=== PATIENT | female | born 1930 | race Caucasian/White ===

== ENCOUNTER 2018-07-27 20:25 | Inpatient (IN) | END 2018-08-08 23:05 | DRG 4 ==

== ENCOUNTER 2018-08-17 09:17 | Day surgery (SDC) | END 2018-08-17 19:05 | disposition other institution (70) ==

== ENCOUNTER 2018-09-12 19:46 | Inpatient (IN) | payer MEDICARE, OTHER ==
[2018-09-12] VITALS (19 sets, daily range): BP systolic 79–104; BP diastolic 36–57; PULSE 53–69; RESP 18–30; Ht 162.6 cm; Wt 80.3 kg
[~2018-09-12] VITALS: Ht 162.6 cm; Wt 80.3 kg
[~2018-09-12 19:46] MED LIST: ACET325S GTB; ALBU2.5V3 NEB; AMLO-147 GTB; BALS3OIN TP; CINA60TA GTB; DOXA4TAB3 GTB; EPINEPHrine 0.1 MG/ML SYG ONE; EPO10ESRD SC; HEPA500021 IJ; INSU100C3 SQ; LANS30CA GTB; MCN2C15 TOP; METO25TA4 PO; NA BICARBONATE 8.4% 50 ML SYG ONE; NPH,100V SQ; NYST1POW22 TOPICAL; SEVE800T7 PO; [UNRECOGNIZED DRUG - CODE] IV
[2018-09-12] MEDS ORDERED: GLUCOSE GEL 15 GRAM TUBE PO PRN ×2 (20:00)
[2018-09-12] MEDS ORDERED: GLUCAGON 1 MG INJ IM PRN (20:00)
[2018-09-12] MEDS ORDERED: GENTAMICIN 80 MG/NS (PMX) 50 ML IVPB SCH (20:00)
[2018-09-12] MEDS ORDERED: hydrALAzine 20 MG INJ IV PRN (20:00)
[2018-09-12] MEDS ORDERED: DEXTROSE 50% 50 ML SYRINGE IV PRN ×2 (20:00→23:30)
[2018-09-12] MEDS ORDERED: ACETAMINOPHEN 650MG/20.3ML CUP GTB PRN (20:00)
[2018-09-12] MEDS ORDERED: ALBUMIN HUMAN 25% 100 ML IV PRN (20:00)
[2018-09-12] MEDS ORDERED: GENTAMICIN IV PER PHARMACY XX SCH (20:00)
[2018-09-12] MEDS ORDERED: GLUCOSE GEL 15 GRAM TUBE BUCCAL PRN (20:00)
--- NOTE | 2018-09-12 20:21 | NUR ---
Pt arrived to ICU at 1943, Pt assessed and placed on monitor. Pt placed on 5mcg of Levo for BP support, placed on Vent; AC 16 TV500 50% Peep 0. SpO2 100%. Blood glucose 120. Temp of 96.2. Report received from Dionne Carmichael RN at bedside. Pt's 2 sweta Mclean and Moose at bedside, requested to talk to Dr Fitzpatrick regarding pt code status.
[2018-09-12] MEDS ORDERED: BALSAM PERU/CASTOR OIL 60 GM TUBE TOP PRN (21:30)
[2018-09-12] MEDS ORDERED: NPH, HUMAN INSULIN ISOPHANE 3ML VIAL SC SCH (22:00)
[2018-09-12] MEDS ORDERED: ONDANSETRON 4 MG INJ IV PRN (22:00)
[2018-09-12] MEDS ORDERED: NA PHOSPHATE/BIPHOS 133 ML ENEMA PR PRN (22:00)
[2018-09-12] MEDS ORDERED: MICONAZOLE 2% 30 GM CR TOP PRN (22:00)
[2018-09-12] MEDS: ACETYLCYSTEINE 20% 4 ML VIAL NEB SCH (22:27)
[2018-09-12] MEDS: NORepinephrine 8MG/250 ML (PMX 250 ML IV SCH (22:29)
[2018-09-12] MEDS: HEPARIN 5,000 UNIT/1 ML VIAL SC SCH (22:59)
[2018-09-12] MEDS ORDERED: VANCOMYCIN IV PER PHARMACY XX SCH (23:15)
[2018-09-12] MEDS ORDERED: INSULIN HUMAN REGULAR 100 UNIT in SOD CHLORIDE 0.9% 99 ML IV SCH (23:30)
[2018-09-12] MEDS: ACCU-CHEK XX SCH (23:30)
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
[2018-09-13] VITALS (65 sets, daily range): BP systolic 0–122; BP diastolic 27–70; PULSE 0–62; RESP 16–27
[2018-09-13] MEDS: DEXTROSE 50% 50 ML SYRINGE IV PRN ×2 (00:01→02:18)
[2018-09-13] MEDS: ACCU-CHEK XX SCH ×16 (00:43→14:22)
[2018-09-13] MEDS: BALSAM PERU/CASTOR OIL 60 GM TUBE TOP SCH ×4 (00:52→11:39)
[2018-09-13] MEDS: ALBUTEROL/IPRATROPIUM (NEB) 3 ML AMP HHN SCH ×2 (01:56→08:25)
[2018-09-13] MEDS ORDERED: SODIUM CHLORIDE 23.4% 77 MEQ in DEXTROSE 10% 1,000 ML IV SCH (03:00)
[2018-09-13] MEDS: NORepinephrine 8MG/250 ML (PMX 250 ML IV SCH ×2 (05:34→11:37)
[2018-09-13] MEDS ORDERED: LANSOPRAZOLE 30 MG CAP GTB SCH (06:00)
[2018-09-13] MEDS ORDERED: VANCOMYCIN 1 GM 250 ML IVPB SCH (06:30)
[2018-09-13] MEDS ORDERED: INSULIN ASPART [NOVOLOG] 3 ML PEN SC SCH (07:35)
[2018-09-13] MEDS: ACETYLCYSTEINE 20% 4 ML VIAL NEB SCH (08:25)
--- NOTE | 2018-09-13 08:26 | PN ---
Date/Time of Note Date/Time of Note DATE: 09/13/18 TIME: 08:23 Assessment/Plan VTE Prophylaxis SCD applied (from Ns): Yes Pharmacological prophylaxis: heparin Assessment/Plan Problems: (1) Septic shock Status: Acute Comment: Patient is extremely septic. Pulmonary infectious disease and renal were notified at the time of her transfer last night. Patient is on broad- spectrum antibiotics and pressor support. Continue to work with this as well as putting her on a bicarb drip to try and correct the acidosis. Situation is critical. Please note that the family has been discussed at length with this. They do not wish her to have chest compressions or DC countershock. She is already on a ventilator they do wish for her to be treated with medications to support her blood pressure. (2) Coag negative Staphylococcus bacteremia Status: Acute Comment: On broad-spectrum antibiotics. Infectious disease is notified (3) Diastolic dysfunction with chronic heart failure Status: Chronic Comment: Noted. (4) Renal failure Status: Chronic Comment: Nephrology is notified. Qualifiers: Renal failure chronicity: chronic Chronic kidney disease stage: on chronic dialysis Qualified Codes: N18.6 - End stage renal disease; Z99.2 - Dependence on renal dialysis (5) Diabetes mellitus Status: Chronic Comment: Insulin drip for the time being Qualifiers: Diabetes mellitus type: type 2 Diabetes mellitus usp insulin use: with usp use Diabetes mellitus complication status: with kidney complications Diabetes mellitus complication detail: with chronic kidney disease Chronic kidney disease stage: on chronic dialysis Qualified Codes: E11.22 - Type 2 diabetes mellitus with diabetic chronic kidney disease; N18.6 - End stage renal disease; Z79.4 - moth exterminator (current) use of insulin; Z99.2 - Dependence on renal dialysis (6) Respiratory failure Status: Chronic Comment: Pulmonary will assist. Qualifiers: Chronicity: chronic Respiratory failure complication: hypoxia and hypercapnia Qualified Codes: J96.11 - Chronic respiratory failure with hypoxia; J96.12 - Chronic respiratory failure with hypercapnia Result Diagram: 09/13/18 0458 Results 24hrs Laboratory Tests Test 09/12/18 20:02 09/12/18 23:00 09/12/18 23:43 09/13/18 00:37 Bedside Glucose 120 57 L 113 Blood Gas Blood arterial Specimen Source Arterial Blood 09/12/2018 11:1 Date Drawn 0:43 PM Arterial Blood 7.150 *L pH (Temp corrected ) Arterial Blood 17.1 L pCO2 (Temp correct) Arterial Blood 131.3 H pO2 (Temp corrected ) Arterial Blood 5.8 *L HCO3 Arterial Blood -21.1 L Base Excess Arterial Blood 97.9 Oxygen Saturati on Sammy Test ACCEPTAB Arterial Blood Left Radial Gas Puncture Site Arterial 0.7 Blood Carboxyhe moglobin Arterial Blood 0.4 Methemoglobin Blood Gas A-a 62.5 H O2 Differential Oxyhemoglobin 96.8 Percent Blood Gas 37.0 Temperature Blood Gas 16.0 Respiration Rate Blood Gas 28 Actual Respiration Rat e Blood Gas VENT - AC Modality FiO2 30.0 Blood Gas Tidal 600.0 Volume Blood Gas Low 0 PEEP Setting Blood Gas JBOWLES RN Critical Value Read Back Blood Gas MA Notified Whom Blood Gas 09/12/2018 11:2 Notified Time 1:45 PM Test 09/13/18 01:57 09/13/18 03:03 09/13/18 03:31 09/13/18 04:37 Bedside Glucose 58 L 101 100 95 Test 09/13/18 04:58 09/13/18 05:36 09/13/18 07:30 09/13/18 08:00 White Blood 22.1 H Count Red Blood Count 2.69 L Hemoglobin 7.1 L Hematocrit 27.9 L Mean 103.7 H Corpuscular Volume Mean 26.4 L Corpuscular Hemoglobin Mean 25.4 L Corpuscular Hemoglobin Conc ent Red Cell 18.6 H Distribution Width Platelet Count 372 Mean Platelet 10.8 H Volume Immature 4.800 H Granulocytes % Neutrophils % 77.8 H Lymphocytes % 8.8 L Monocytes % 8.3 Eosinophils % 0.0 Basophils % 0.3 Nucleated Red 2.4 H Blood Cells % Immature 1.050 H Granulocytes # Neutrophils # 17.2 H Lymphocytes # 2.0 Monocytes # 1.8 H Eosinophils # 0.0 Basophils # 0.1 Nucleated Red 0.5 H Blood Cells # Lactic Acid 16.9 *H Level Random 13.3 Vancomycin Level Bedside Glucose 80 123 Blood Gas Blood Specimen arterial Source Arterial Blood 09/13/2018 8:0 Date Drawn 9:07 AM Arterial Blood 6.930 *L pH (Temp corrected ) Arterial Blood 24.6 L pCO2 (Temp correct) Arterial Blood 103.8 H pO2 (Temp corrected ) Arterial Blood 5.0 *L HCO3 Arterial Blood -26.4 L Base Excess Sammy Test ACCEPTAB Arterial Blood Right Radial Gas Puncture Site Blood Gas A-a 81.2 H O2 Differential Blood Gas 37.0 Temperature Blood Gas 16.0 Respiration Rate Blood Gas 19 Actual Respiration Rat e Blood Gas VENT - AC Modality FiO2 30.0 Blood Gas Tidal 600.0 Volume Blood Gas BEVERLEY REED Critical Value Read Back Blood Gas TM Notified Whom Blood Gas 09/13/2018 8:1 Notified Time 6:56 AM Subjective 24 Hr Interval Summary Subjective hx not possible: pt non-verbal, pt critical status Exam/Review of Systems Vital Signs Vitals Vital Signs Date Temp Pulse Resp B/P (MAP) Pulse Ox O2 O2 Flow FiO2 Time Delivery Rate 09/13/18 59 18 100 30 05:47 09/13/18 87/34 (51) Mechanical 03:00 Ventilator Trach Collar 09/13/18 97.7 00:00 Exam Constitutional: non-verbal ENMT: other (Tracheostomy) Respiratory: normal air movement, crackles/rales Cardiovascular: regular rate and rhythm, nl pulses Gastrointestinal: other (EEG tube in place) Extremities: normal pulses Medications Medications Current Medications Norepinephrine 250 ml @ 1.875 mls/ hr TITRATE IV Last administered on 09/13/18at 05:34; Admin Dose 45 MLS/HR; Start 09/12/18 at 22:00 Diagnostic Test (Pha) (Accu-Chek) 1 ea AC MEALS XX Last administered on 09/13/18at 07:32; Admin Dose 1 EA; Start 09/13/18 at 07:05 Acetaminophen (Tylenol Liquid) 650 mg Q4H PRN GTB MILD PAIN(1-3)OR ELEVATED TEMP; Start 09/12/18 at 20:00 Acetylcysteine (Mucomyst) 4 ml Q12H RESP THERAPY NEB Last administered on 09/12/18at 22:27; Admin Dose 4 ML; Start 09/12/18 at 22:00 Albumin Human 100 ml @ 100 mls/hr DURING DIALYSIS PRN IV support bp; Start 09/12/18 at 20:00 Albuterol/ Ipratropium (Duoneb) 3 ml Q6H RESP THERAPY HHN Last administered on 09/13/18at 01:56; Admin Dose 3 ML; Start 09/13/18 at 02:00 Cinacalcet (Sensipar) 60 mg DAILY PO ; Start 09/13/18 at 09:00 Dextrose (D50w Syringe) 50 ml PRN PRN IV DECREASED GLUCOSE; Start 09/12/18 at 20:00 Epoetin Khanh (Epogen (Esrd)) 10,000 units MoWeFr@17 SC ; Start 09/13/18 at 17:00 Gentamicin Sulfate (Gentamicin Iv Per Pharmacy) GENTAMICIN PER PHARMACY NOTE XX ; Start 09/12/18 at 20:00 Gentamicin Sulfate 50 ml @ 104 mls/hr AFTER DIALYSIS IVPB ; Start 09/12/18 at 20:00 Glucagon (Glucagen) 1 mg PRN PRN IM DECREASED GLUCOSE; Start 09/12/18 at 20:00 Glucose (Glutose) 15 gm PRN PRN PO glucose 51-69; Start 09/12/18 at 20:00 Glucose (Glutose) 22.5 gm PRN PRN PO glucose below 51; Start 09/12/18 at 20:00 Glucose (Glutose) 15 gm PRN PRN BUCCAL glucose below 70; Start 09/12/18 at 20:00 Heparin Sodium (Porcine) (Heparin (5000 Units/1ml)) 5,000 unit BID SC Last administered on 09/12/18at 22:59; Admin Dose 5,000 UNIT; Start 09/12/18 at 22:00 Hydralazine HCl (Apresoline) 20 mg Q6H PRN IV HYPERTENSION; Start 09/12/18 at 20:00 Lansoprazole (Prevacid) 30 mg DAILY@06 GTB Last administered on 09/13/18at 06:52; Admin Dose 30 MG; Start 09/13/18 at 06:00 Miconazole Nitrate (Miconazole 2% Cr) 1 applic PRN PRN TOP rash; Start 09/12 at 22:00 Miconazole Nitrate (Miconazole 2% Cr) 1 applic BID TOP ; Start 09/13/18 at 09:00 Nystatin (Nystatin Powder) 1 applic BID TOP ; Start 09/13/18 at 09:00 Ondansetron HCl (Zofran Inj) 4 mg Q6H PRN IV NAUSEA AND/OR VOMITING; Start 09/12/18 at 22:00 IV Flush (NS 10 ml) 10 ml Q8 PRN IV protocol; Start 09/12/18 at 22:00 Sevelamer Carbonate (Renvela) 0.8 gm TID GTB ; Start 09/13/18 at 09:00 Simethicone (Mylicon) 80 mg Q8 PRN GTB DISTENSION/GAS/BLOATING; Start 09/12/18 at 22:00 Sodium Biphosphate/ Sodium Phosphate (Fleet Enema) 133 ml DAILY PRN [place] CONSTIPATION; Start 09/12/18 at 22:00 Vancomycin HCl (Vanco Iv Per Pharmacy) VANCOMYCIN PER PHARMACY PER PROTOCOL XX ; Start 09/12/18 at 23:15 Voriconazole (Vfend) 200 mg BID PO ; Start 09/13/18 at 09:00 Diagnostic Test (Pha) (Accu-Chek) 1 ea Q1H XX Last administered on 09/13/18at 07:32; Admin Dose 1 EA; Start 09/12/18 at 23:30 Insulin Human Regular 100 unit/ Sodium Chloride 100 ml @ 0 mls/hr PER PROTOCOL IV ; Start 09/12/18 at 23:30; Status UNV Miscellaneous Information (* Miscellaneous Pharmacy Order) Treatment of Hypo glycemia: 1.BG 51... Per protocol XX ; Start 09/12/18 at 23:30 Dextrose (D50w Syringe) 25 ml Q15M PRN IV DECREASED GLUCOSE Last administered on 09/13/18at 02:18; Admin Dose 25 ML; Start 09/12/18 at 23:30 Dextrose (D50w Syringe) 50 ml Q15M PRN IV DECREASED GLUCOSE; Start 09/12/18 at 23:30 Sodium Chloride 77 meq/Dextrose 1,019.25 ml @ 40 mls/hr Q24H IV Last administered on 09/13/18at 03:04; Admin Dose 40 MLS/HR; Start 09/13/18 at 03:00 Vancomycin HCl 250 ml @ 125 mls/hr Q96H IVPB Last administered on 09/13/18at 07:32; Admin Dose 125 MLS/HR; Start 09/13/18 at 06:30 Cefepime HCl 50 ml @ 100 mls/hr Q8 IVPB ; Start 09/13/18 at 14:00; Status UNV Aztreonam 2 gm/ Sodium Chloride 100 ml @ 100 mls/hr Q8 IVPB ; Start 09/13/18 at 14:00; Status UNV SARAH VALENTIN MD Sep 13, 2018 08:26
[2018-09-13] MEDS ORDERED: LIDOCAINE 1% (MPF) 5 ML VIAL SC ONE ×2 (08:30→10:00)
[2018-09-13] MEDS: SEVELAMER CARBONATE 0.8 GM PKT GTB SCH ×2 (08:36→14:11)
[2018-09-13] MEDS: HEPARIN 5,000 UNIT/1 ML VIAL SC SCH (08:38)
[2018-09-13] MEDS ORDERED: CINACALCET 30 MG TAB PO SCH (09:00)
[2018-09-13] MEDS ORDERED: METOPROLOL 25 MG TAB GTB SCH (09:00)
[2018-09-13] MEDS ORDERED: NYSTATIN 30 GM POWDER BTL TOP SCH (09:00)
[2018-09-13] MEDS ORDERED: MICONAZOLE 2% 30 GM CR TOP SCH (09:00)
[2018-09-13] MEDS ORDERED: VORICONAZOLE 200 MG TAB PO SCH (09:00)
[2018-09-13] MEDS ORDERED: SODIUM BICARBONATE (IV ADD) 100 MEQ in DEXTROSE 5% 900 ML IV SCH (09:00)
--- NOTE | 2018-09-13 09:05 | NUR ---
EOSS Pt remained obtunded throughout shift, would withdraw to pain but does not follow commands. Pt remains on vent through trach, SpO2 remained >92% throughout shift. Pt remained in 2nd degree type 1 heart block with low BP, Levo titrated accordingly throughout shift. Pt cisneros in place, minimal output with <20ml throughout shift. Pt PEG tube patent, but would occasionally become occluded requiring flushing. Shortly after pt TF were started emesis was discovered in pt's mouth, upon reassessment pt had high residuals from peg tube (600ml) TF was held and MD notified. Pt's trach site remained intact and pt did not appear to aspirate TF. Pt placed on D10 0.45% NS as pt continued to be hypoglycemic throughout shift. Pt's 2 sons at bedside upon arrival to unit and were at bedside intermittently throughout night. Per Dr Fitzpatrick code status was changed to Chem code only. After discussion with family they wished it to be clear that they wanted everything done except for chest compressions including being reintubated if needed. Pt turned q2h. Bedside report given to dayshift RN.
[2018-09-13] MEDS ORDERED: NA BICARBONATE 8.4% 50 ML SYG ONE ×2 (09:34→10:02)
[2018-09-13] MEDS ORDERED: NA BICARBONATE 8.4% 50 ML SYG IV ONE ×2 (10:00→13:00)
--- NOTE | 2018-09-13 10:02 | PN ---
DATE: 09/13/2018 SUBJECTIVE: The patient yesterday was transferred from [facility] to [facility] intensive care unit due to septic shock. The patient was placed on pressor support. The patient had a lactic acid of approximately 17. Overnight, the patient has been critically ill on pressor lewis pport, on IV hydration, on full ventilatory support. No other acute events noted. No hemoptysis, he matemesis, hematochezia. OBJECTIVE: VITAL SIGNS: Blood pressure is 87/34, respiration 24, pulse 55, temperature 98.6. HEENT: Head is normocephalic. NECK: Supple. HEART: Regular rate. LUNGS: Show diminished breath sounds at the base. ABDOMEN: Soft, nontender to palpation without rebound or guarding. EXTREMITIES: Negative for clubbing, cyanosis. Positive edema. DERMATOLOGIC: No rashes. MUSCULOSKELETAL: No joint effusions. NEUROLOGIC: Patient is obtunded. LABORATORY DATA: Shows a lactic acid is 17 and BNP is pending. The patient has a white count of 22. 1, hemoglobin 7.1, platelet count is 372. ASSESSMENT AND PLAN: 1. End-stage renal disease. The patient has been receiving intermittent hemodialysis, last hemodial ysis was yesterday. The patient has a persistent bacteremia and may require removal of Alireza coco ter. At this point, will follow up cultures. Discussed with infectious disease about catheter remov al. Continue intermittent hemodialysis if the patient is hemodynamically stable. 2. Metabolic acidemia. Etiology secondary to lactic acidosis. End-stage renal disease. Will follow up ABG. Will continue dialysis on a high bicarbonate bath. If the patient is unable to tolerate he modialysis, will start patient on bicarbonate drip, monitor closely. 3. Anemia. Monitor hemoglobin and hematocrit levels, transfuse PRBCs as needed. We will continue E pogen. 4. Mineral bone disorder, monitor calcium and phosphorus levels. 5. Septic shock, etiology secondary to bacteremia. Underlying source is unclear. Continue broad sp ectrum antibiotics, continue pressor support. Continue volume expansion. We will follow up with inf ectious disease. 6. Ventilator dependent respiratory failure. Vent settings and ABG was reviewed. Continue to monit or. Follow up with pulmonary. 7. Dysphagia. Continue tube feeding. 8. Diabetes. Continue current insulin regimen. 9. Arrhythmia. Continue medical management. Follow up with cardiology. Please note I spent over 30 minutes of critical care time with this patient. Dictated By: KIRIT MERCADO DO NR/RAYMOND Conf#: [id number] DID#: [id number] CC: SARAH VALENTIN MD; JESSICA MOSS MD;*EndCC*
[2018-09-13] MEDS ORDERED: SODIUM BICARBONATE (IV ADD) 150 MEQ in DEXTROSE 5% 850 ML IV SCH (10:09)
[2018-09-13] MEDS ORDERED: CEFEPIME 1GM/50 ML IVPB SCH (11:00)
--- NOTE | 2018-09-13 11:30 | NUR ---
SS NOTE: CONSULT PT TRANSFERRED FROM [facility] DUE TO HYPOTENSION, SEPTIC SHOCK. SW MET WITH PT'S SON AT BEDSIDE. SON REPORTED THAT THEY HAVE DISCUSSED PT'S CONDITION WITH DR. VALENTIN AND THEY HAVE MADE A DECISION THAT PT SHOULD BE CHEM CODE ONLY. SON STATED THAT THEY STILL WANT TO CONTINUE WITH FULL TREATMENT AT THIS TIME AND THEY WILL CONTINUE TO FOLLOW DR. VALENTIN'S RECOMMENDATION RE: PT'S TREATMENT PLANS. SW PROVIDED EMOTIONAL SUPPORT. WILL CONTINUE TO F/U WITH PT'S FAMILY FOR INFO AND SUPPORT.
--- NOTE | 2018-09-13 11:36 | CONS ---
Date/Time of Note Date/Time of Note DATE: 09/13/18 TIME: 11:29 Assessment/Plan Assessment/Plan Assessment/Plan Severe septic shock Hypotension on IV pressor Lactic acidosis Respiratory failure Preserved ejection fraction Chronic kidney disease on hemodialysis Encephalopathy History of coronary artery disease -continue IV pressor to maintain SBP>90 and or MAP >60 -Awaiting PICC like (I have called radiology) -D/C all aanti-HTN meds -Fluid management and electrolytes as per Renal -Antibiotics as per ID -Critical/grave prognosis discussed with sons. Patient is currently a chemical code -Greater than 40 minutes of critical care time taken in the care of this patient Result Diagram: 09/13/18 0458 09/13/18 0835 Results 24hrs Laboratory Tests Test 09/12/18 20:02 09/12/18 23:00 09/12/18 23:43 09/13/18 00:37 Bedside Glucose 120 57 L 113 Blood Gas Blood arterial Specimen Source Arterial Blood 09/12/2018 11:1 Date Drawn 0:43 PM Arterial Blood 7.150 *L pH (Temp corrected ) Arterial Blood 17.1 L pCO2 (Temp correct) Arterial Blood 131.3 H pO2 (Temp corrected ) Arterial Blood 5.8 *L HCO3 Arterial Blood -21.1 L Base Excess Arterial Blood 97.9 Oxygen Saturati on Sammy Test ACCEPTAB Arterial Blood Left Radial Gas Puncture Site Arterial 0.7 Blood Carboxyhe moglobin Arterial Blood 0.4 Methemoglobin Blood Gas A-a 62.5 H O2 Differential Oxyhemoglobin 96.8 Percent Blood Gas 37.0 Temperature Blood Gas 16.0 Respiration Rate Blood Gas 28 Actual Respiration Rat e Blood Gas VENT - AC Modality FiO2 30.0 Blood Gas Tidal 600.0 Volume Blood Gas Low 0 PEEP Setting Blood Gas JBOWMIA RN Critical Value Read Back Blood Gas MA Notified Whom Blood Gas 09/12/2018 11:2 Notified Time 1:45 PM Test 09/13/18 01:57 09/13/18 03:03 09/13/18 03:31 09/13/18 04:37 Bedside Glucose 58 L 101 100 95 Test 09/13/18 04:58 09/13/18 05:36 09/13/18 07:30 09/13/18 08:00 White Blood 22.1 H Count Red Blood Count 2.69 L Hemoglobin 7.1 L Hematocrit 27.9 L Mean 103.7 H Corpuscular Volume Mean 26.4 L Corpuscular Hemoglobin Mean 25.4 L Corpuscular Hemoglobin Conc ent Red Cell 18.6 H Distribution Width Platelet Count 372 Mean Platelet 10.8 H Volume Immature 4.800 H Granulocytes % Neutrophils % 77.8 H Lymphocytes % 8.8 L Monocytes % 8.3 Eosinophils % 0.0 Basophils % 0.3 Nucleated Red 2.4 H Blood Cells % Immature 1.050 H Granulocytes # Neutrophils # 17.2 H Lymphocytes # 2.0 Monocytes # 1.8 H Eosinophils # 0.0 Basophils # 0.1 Nucleated Red 0.5 H Blood Cells # Lactic Acid 16.9 *H Level Random 13.3 Vancomycin Level Bedside Glucose 80 123 Blood Gas Blood Specimen arterial Source Arterial Blood 09/13/2018 8:0 Date Drawn 9:07 AM Arterial Blood 6.930 *L pH (Temp corrected ) Arterial Blood 24.6 L pCO2 (Temp correct) Arterial Blood 103.8 H pO2 (Temp corrected ) Arterial Blood 5.0 *L HCO3 Arterial Blood -26.4 L Base Excess Sammy Test ACCEPTAB Arterial Blood Right Radial Gas Puncture Site Blood Gas A-a 81.2 H O2 Differential Blood Gas 37.0 Temperature Blood Gas 16.0 Respiration Rate Blood Gas 19 Actual Respiration Rat e Blood Gas VENT - AC Modality FiO2 30.0 Blood Gas Tidal 600.0 Volume Blood Gas BEVERLEY REED Critical Value Read Back Blood Gas TM Notified Whom Blood Gas 09/13/2018 8:1 Notified Time 6:56 AM Test 09/13/18 08:35 09/13/18 09:04 Sodium Level 139 Potassium Level 6.1 *H Chloride Level 101 Carbon Dioxide 7 #*L Level Anion Gap 31 #H Blood Urea 84 H Nitrogen Creatinine 5.62 H Est Glomerular Filtrat Rate mL/min Glucose Level 112 # Calcium Level 8.6 Phosphorus 17.8 H Level Magnesium Level 3.2 H Total Bilirubin 0.0 L Direct 0.00 Bilirubin Indirect 0.0 Bilirubin Aspartate Amino 542 H Transf (AST/SGO T) Alanine 102 H Aminotransferas e (ALT/SGPT) Alkaline 195 H Phosphatase Total Protein 6.6 Albumin 3.2 L Globulin 3.40 H Albumin/Globuli 0.94 n Ratio Bedside Glucose 138 Consultation Date/Type/Reason Admit Date/Time Sep 12, 2018 at 19:46 Initial Consult Date Type of Consult cv 24 HR Interval Summary Free Text/Dictation Patient transferred to ICU secondary to worsening hypotension and metabolic acidosis. Currently poor mental status response. On IV pressor. Exam/Review of Systems Vital Signs Vitals Vital Signs Date Temp Pulse Resp B/P (MAP) Pulse Ox O2 O2 Flow FiO2 Time Delivery Rate 09/13/18 57 16 91/70 (77) 99 10:15 09/13/18 98.0 08:00 09/13/18 Mechanical 07:30 Ventilator 09/13/18 30 05:47 Intake and Output 09/12/18 09/12/18 09/13/18 1515:00 23:00 07:00 IntakeIntake Total 28.125 ml 315.625 ml OutputOutput Total 50 ml 0 ml BalanceBalance -21.875 ml 315.625 ml Exam No response to verbal stimuli or tactile stimuli, tracheostomy to ventilator, multiple family members at bedside, no apparent distress Head: normocephalic Neck: other (Tracheostomy) Respiratory: other (Coarse breath sounds bilaterally, no wheezing) Cardiovascular: regular rate and rhythm, other (S1-S2 heard) Gastrointestinal: soft, bowel sounds, other (No grimacing with palpation) Extremities: edema (Mild) Neurological: other (No response to verbal or tactile stimuli) Additional Comments Rectal tube present Medications Medications Current Medications Norepinephrine 250 ml @ 1.875 mls/ hr TITRATE IV Last administered on 09/13/18at 05:34; Admin Dose 45 MLS/HR; Start 09/12/18 at 22:00 Diagnostic Test (Pha) (Accu-Chek) 1 ea AC MEALS XX Last administered on 09/13/18at 07:32; Admin Dose 1 EA; Start 09/13/18 at 07:05 Acetaminophen (Tylenol Liquid) 650 mg Q4H PRN GTB MILD PAIN(1-3)OR ELEVATED TEMP; Start 09/12/18 at 20:00 Acetylcysteine (Mucomyst) 4 ml Q12H RESP THERAPY NEB Last administered on 09/13/18at 08:25; Admin Dose 4 ML; Start 09/12/18 at 22:00 Albumin Human 100 ml @ 100 mls/hr DURING DIALYSIS PRN IV support bp; Start 09/12/18 at 20:00 Albuterol/ Ipratropium (Duoneb) 3 ml Q6H RESP THERAPY HHN Last administered on 09/13/18at 08:25; Admin Dose 3 ML; Start 09/13/18 at 02:00 Cinacalcet (Sensipar) 60 mg DAILY PO Last administered on 09/13/18at 08:37; Admin Dose 60 MG; Start 09/13/18 at 09:00 Dextrose (D50w Syringe) 50 ml PRN PRN IV DECREASED GLUCOSE; Start 09/12/18 at 20:00 Epoetin Khanh (Epogen (Esrd)) 10,000 units MoWeFr@17 SC ; Start 09/13/18 at 17:00 Gentamicin Sulfate (Gentamicin Iv Per Pharmacy) GENTAMICIN PER PHARMACY NOTE XX ; Start 09/12/18 at 20:00 Gentamicin Sulfate 50 ml @ 104 mls/hr AFTER DIALYSIS IVPB ; Start 09/12/18 at 20:00 Glucagon (Glucagen) 1 mg PRN PRN IM DECREASED GLUCOSE; Start 09/12/18 at 20:00 Glucose (Glutose) 15 gm PRN PRN PO glucose 51-69; Start 09/12/18 at 20:00 Glucose (Glutose) 22.5 gm PRN PRN PO glucose below 51; Start 09/12/18 at 20:00 Glucose (Glutose) 15 gm PRN PRN BUCCAL glucose below 70; Start 09/12/18 at 20:00 Heparin Sodium (Porcine) (Heparin (5000 Units/1ml)) 5,000 unit BID SC Last administered on 09/13/18at 08:38; Admin Dose 5,000 UNIT; Start 09/12/18 at 22:00 Hydralazine HCl (Apresoline) 20 mg Q6H PRN IV HYPERTENSION; Start 09/12/18 at 20:00 Lansoprazole (Prevacid) 30 mg DAILY@06 GTB Last administered on 09/13/18at 06:52; Admin Dose 30 MG; Start 09/13/18 at 06:00 Miconazole Nitrate (Miconazole 2% Cr) 1 applic PRN PRN TOP rash; Start 09/12/18 at 22:00 Miconazole Nitrate (Miconazole 2% Cr) 1 applic BID TOP Last administered on 09/13/18at 08:39; Admin Dose 1 APPLIC; Start 09/13/18 at 09:00 Nystatin (Nystatin Powder) 1 applic BID TOP Last administered on 09/13/18at 08:39; Admin Dose 1 APPLIC; Start 09/13/18 at 09:00 Ondansetron HCl (Zofran Inj) 4 mg Q6H PRN IV NAUSEA AND/OR VOMITING; Start 09/12/18 at 22:00 IV Flush (NS 10 ml) 10 ml Q8 PRN IV protocol; Start 09/12/18 at 22:00 Sevelamer Carbonate (Renvela) 0.8 gm TID GTB Last administered on 09/13/18at 08:36; Admin Dose 0.8 GM; Start 09/13/18 at 09:00 Simethicone (Mylicon) 80 mg Q8 PRN GTB DISTENSION/GAS/BLOATING; Start 09/12/18 at 22:00 Sodium Biphosphate/ Sodium Phosphate (Fleet Enema) 133 ml DAILY PRN MI CONSTIPATION; Start 09/12/18 at 22:00 Vancomycin HCl (Vanco Iv Per Pharmacy) VANCOMYCIN PER PHARMACY PER PROTOCOL XX ; Start 09/12/18 at 23:15 Voriconazole (Vfend) 200 mg BID PO Last administered on 09/13/18at 08:36; Admin Dose 200 MG; Start 09/13/18 at 09:00 Diagnostic Test (Pha) (Accu-Chek) 1 ea Q1H XX Last administered on 09/13/18at 07:32; Admin Dose 1 EA; Start 09/12/18 at 23:30 Insulin Human Regular 100 unit/ Sodium Chloride 100 ml @ 0 mls/hr PER PROTOCOL IV ; Start 09/12/18 at 23:30; Status Hold Miscellaneous Information (* Miscellaneous Pharmacy Order) Treatment of Hypogl ycemia: 1.BG 51... Per protocol XX ; Start 09/12/18 at 23:30 Dextrose (D50w Syringe) 25 ml Q15M PRN IV DECREASED GLUCOSE Last administered on 09/13/18at 02:18; Admin Dose 25 ML; Start 09/12/18 at 23:30 Dextrose (D50w Syringe) 50 ml Q15M PRN IV DECREASED GLUCOSE; Start 09/12/18 at 23:30 Vancomycin HCl 250 ml @ 125 mls/hr Q96H IVPB Last administered on 09/13/18at 07:32; Admin Dose 125 MLS/HR; Start 09/13/18 at 06:30 Sodium Bicarbonate 150 meq/Dextrose 1,000 ml @ 50 mls/hr Q20H IV ; Start 09/13/18 at 10:09 Cefepime HCl 50 ml @ 100 mls/hr DAILY IVPB ; Start 09/13/18 at 11:00 Mg Hoskins DO Sep 13, 2018 11:36
--- NOTE | 2018-09-13 12:04 | NUR ---
RX NOTE RE: VANCOMYCIN AND GENTAMICIN PT ON VANCO AND GENT PER RX BUN/SCR: 84/5.62 TMAX: 98 ALLERGIES: NKDA OTHER ABX: CEFEPIME, VORICONAZOLE VANCO RANDOM: 13.3 VANCOMYCIN 1GM X1 GIVEN TODAY IN THE AM. WILL ADJUST TO DOSE PER LEVEL. DIALYSIS PLANNED FOR TODAY - GENTAMICIN 80MG IV X1 TO BE GIVEN TODAY. PHARMACY TO FOLLOW.
--- NOTE | 2018-09-13 12:10 | NUR ---
RT- NOT ABLE TO GET ABG AND NOTIFIED DEREK BLANK
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
[2018-09-13] MEDS ORDERED: AZTREONAM 2 GM in SOD CHLORIDE 0.9% 100 ML IVPB SCH (14:00)
[2018-09-13] MEDS ORDERED: CEFEPIME 2GM/50 ML (PMX) 50 ML IVPB SCH (14:00)
--- NOTE | 2018-09-13 14:17 | NUR ---
PICC Insertion. Attended to pt in ICU, room 103 for peripherally inserted central catheter (PICC) insertion. Pt is sedated and intubated. Signed consent on chart for PICC. RUE prepped with chlorhexidene, then maximum barrier drape applied. 5 FR double lumen Arrow Power PICC inserted into brachial vein, using U/S guidance and sterile technique. CXR performed; tip confirmed in lower 1/3 SVC. Sterile dressing applied. Total length of cath is 43 cm, zero out. All guidewires removed & accounted for. Patient tolerated procedure well. Existing RUE midline removed, DVT prophylaxis.
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
--- NOTE | 2018-09-13 15:38 | NUR ---
SS NOTE: CODE BLUE RESPONDED TO CODE BLUE. PT'S FAMILY PRESENT. PT CHEM CODE ONLY. DR. VALENTIN ALSO ARRIVED. PT . MET WITH FAMILY, DISCUSSED THE SITUATION AND ANSWERED FAMILY'S QUESTIONS. FLAQUITA MET WITH FAMILY AND PROVIDED EMOTIONAL SUPPORT. NO OTHER ISSUES PRESENT AT THIS TIME. SW WILL CONTINUE TO REMAIN AVAILABLE FOR SUPPORT AND INFO.
--- NOTE | 2018-09-13 16:12 | CONS ---
DATE OF ADMISSION: 09/12/2018 DATE OF CONSULTATION: REASON FOR CONSULTATION: Ventilator management. Thank you, Dr. Mercado, for this consultation. HISTORY OF PRESENT ILLNESS: This is an unfortunate 88-year-old lady with multiple medical problems, vent-dependent respiratory failure, tracheostomy, recurrent sepsis polymicrobial, diabetes mellitus, end-stage renal failure on hemodialysis, who came in from [facility] yesterday for i ncreasing hypotension requiring vasopressor support and worsening mentation. This morning, she had m arked metabolic acidosis with significant lactic acidosis. The patient continues mechanical ventilat ion ____ vasopressor support. Code status has been changed to chemical code only. PAST MEDICAL HISTORY: As above. MEDICATIONS: Per chart. ALLERGIES: NONE. SOCIAL HISTORY: Nonsmoker, no alcohol, no history of drug use. FAMILY HISTORY: Noncontributory. REVIEW OF SYSTEMS: Twelve-point review of systems negative other than that mentioned above. PHYSICAL EXAMINATION: VITAL SIGNS: Temperature 98, pulse 60, blood pressure 85/55, O2 saturation 96%, FiO2 of 40%. NECK: Trach site clean and intact. CARDIAC: S1, S2, no added sounds or murmurs. CHEST: Diminished air entry bilaterally. ABDOMEN: Soft, nontender, no guarding, no rebound. EXTREMITIES: No cyanosis, clubbing, or edema. NEUROLOGIC: Unable to assess. LABORATORY DATA: White count 22.1, hemoglobin 7.1, platelets 372. Bicarbonate 7, potassium 6.1. Ar terial blood gas: pH of 7.69, PCO2 of 24, PAO2 of 103, bicarbonate was 5. RADIOLOGIC DATA: Chest x-ray shows patchy infiltrates bilaterally. IMPRESSION: 1. Severe septic shock on vasopressor support. 2. Severe metabolic acidosis. 3. End-stage renal failure on hemodialysis. 4. Possible line sepsis. 5. Encephalopathy, toxic metabolic. PLAN: 1. Long discussion with family at bedside regarding extremely poor prognosis and goals of care. Oscar vinson is considering palliative care approach. Currently, patient is DNR/DNI. 2. Continue vasopressor. 3. Continue antibiotics. 4. Continue hemodialysis if tolerated. 5. Intravenous bicarbonate for correction of acidosis as tolerated. Overall, prognosis is extremely poor. Goal should be to consider transition to comfort care. Dictated By: AMRIK LOMAX/RAYMOND Conf#: [id number] [facility]#: [id number] CC: KIRIT MERCADO DO; SARAH VALENTIN MD;*[facility]*
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
[2018-09-13] MEDS ORDERED: EPOETIN 10000 UNITS/1 ML INJ (ESRD) SC SCH (17:00)
== END 2018-09-13 15:06 | disposition expired | DRG 871 ==
LOC: ICU 19:46
PROVIDERS: ADMIT Internal Medicine; ATTEND Internal Medicine
PROC: 5A1935Z Respiratory Ventilation, Less than 24 Consecutive Hours (ICD-10-PCS; principal; 2018-09-12)
PROC: 02HV33Z Insertion of Infusion Device into Superior Vena Cava, Percutaneous Approach (ICD-10-PCS; 2018-09-13)
DX: A41.1 Sepsis due to other specified staphylococcus (principal); R65.21 Severe sepsis with septic shock; G92 Toxic encephalopathy; N18.6 End stage renal disease; J96.10 Chronic respiratory failure, unspecified whether with hypoxia or hypercapnia; I13.2 Hypertensive heart and chronic kidney disease with heart failure and with stage 5 chronic kidney disease, or end stage renal disease; I50.32 Chronic diastolic (congestive) heart failure; Z93.0 Tracheostomy status; I44.0 Atrioventricular block, first degree; E83.52 Hypercalcemia; E11.9 Type 2 diabetes mellitus without complications; D63.1 Anemia in chronic kidney disease; R13.10 Dysphagia, unspecified; Z99.2 Dependence on renal dialysis
CPT/HCPCS: 36569; 36600; 71045; 76937; 80053; 80202; 82803; 82962; 83605; 83735; 84100; 85025; 94002; 94003; 94640; 94664; C1769; J0171; J0692; J1580; J1644; J1815; J3370; J7070; Q4081